=== PATIENT | male | born 1955 | race Hispanic/Latino ===

== ENCOUNTER → 2019-10-19 | Outpatient (CLI) | payer OTHER ==
[~2019-10-19] MED LIST: CALC-1030 PO; CIPR-245 PO; DIPH25TA51 PO; ENAL5TAB PO; FISH OIL OMEGA1 EACH PO; GLIM4TAB36 PO; LORA10TA57 PO; LOVA40TA2 PO; MELO-106 PO; METF-444 PO; OMEP-272 PO; POTA2TAB18 PO; RANI-662 PO; SMZ/TMP DS 800-160 PO; SULF1TAB42 PO
== END | disposition home or self-care (01) ==
LOC: RAH 08:09
PROVIDERS: ATTEND Family Medicine
DX: N28.1 Cyst of kidney, acquired (principal); K73.9 Chronic hepatitis, unspecified; K76.89 Other specified diseases of liver; R16.1 Splenomegaly, not elsewhere classified
CPT/HCPCS: 76700

== ENCOUNTER 2020-05-08 09:44 | Emergency (ER) | payer OTHER ==
[~2020-05-08 09:44] MED LIST changes: -CIPR-245 PO; +CIPR500T10 PO; -ENAL5TAB PO; +ENAL5TAB17 PO
[2020-05-08] MEDS ORDERED: DEXAMETHASONE SOD PHOSPHATE 10MG/ML 1ML VIAL ONE (10:15)
[2020-05-08 10:23] LABS: BASOPHILS % (AUTO) 0.3 % (0.0-5.0); EOSINOPHILS % (AUTO) 0.6 % (0.0-8.0); HEMATOCRIT 31.5 % (42-54); LYMPHOCYTES % (AUTO) 19.4 % (21.0-51.0); MEAN CORPUSCULAR HGB CONC 33.3 g/dL (32.0-36.0); MONOCYTES % (AUTO) 9.4 % (3.0-13.0); PLATELET COUNT (AUTO) 96 K/uL (130-400); RED BLOOD CELL COUNT(AUTO) 3.62 MIL/uL (4.50-6.20); RED CELL DISTRIBUTION WIDTH 14.1 % (11.0-15.5); WHITE BLOOD COUNT (AUTO) 3.4 K/uL (4.8-10.8)
[2020-05-08 10:27] LABS: CREATININE 0.8 mg/dL (0.5-1.5); POTASSIUM 3.9 mmol/L (3.5-5.1)
[2020-05-08 10:32] LABS: BILIRUBIN,TOTAL 2.4 mg/dL (0.2-1.0); TOTAL PROTEIN, SERUM 7.2 g/dL (6.0-8.3)
[2020-05-08 10:34] LABS: ABG BASE EXCESS 0.4 mmol/L (-2.0-3.0); ABG HCO3 22.7 mmol/L (21.0-28.0); ABG OXYGEN SATURATION 92.6 % (95.0-99.0); ABG PCO2 31 mmHg (35-48)
[2020-05-08] MEDS ORDERED: CEFTRIAXONE 1G VIAL ONE (11:55)
== END 2020-05-08 15:01 | disposition home or self-care (01) ==
LOC: EDH 09:44
DX: U07.1 COVID-19 (principal); J12.82 Pneumonia due to coronavirus disease 2019; E11.9 Type 2 diabetes mellitus without complications; I10 Essential (primary) hypertension; E78.5 Hyperlipidemia, unspecified
CPT/HCPCS: 36415; 36600; 71045; 80053; 82803; 85025; 87040; 87804 ×2; 93005; 96374; 96375; 99285; J0696; J1100

== ENCOUNTER 2021-07-28 22:06 | Inpatient (IN) | payer OTHER ==
[~2021-07-28] VITALS: Ht 170.2 cm; Wt 86.5 kg
[2021-07-28] MEDS ORDERED: ONDANSETRON 4MG INJ IVP ONE (22:30)
[2021-07-28] MEDS ORDERED: OCTREOTIDE ACETATE 100 MCG/ML AMP IV SCH (22:30)
[2021-07-28] MEDS ORDERED: OCTREOTIDE ACETATE 1,250 MCG in 0.9% NACL 250ML 250 ML IV SCH (22:30)
[2021-07-28] MEDS ORDERED: 0.9%NACL 1000ML 1,000 ML IV ONE (22:30)
[2021-07-28] MEDS ORDERED: OCTREOTIDE ACETATE 200 MCG/ML 5 ML VIAL ONE (22:36)
[2021-07-28 22:39] LABS: BASOPHILS % (AUTO) 0.3 % (0.0-5.0); EOSINOPHILS % (AUTO) 0.7 % (0.0-8.0); HEMATOCRIT 25.6 % (42-54); LYMPHOCYTES % (AUTO) 10.7 % (21.0-51.0); MEAN CORPUSCULAR HEMOGLOBIN 29.8 pg (27.0-33.0); MEAN CORPUSCULAR HGB CONC 31.6 g/dL (32.0-36.0); MEAN CORPUSCULAR VOLUME 94.1 fL (79-99); MONOCYTES % (AUTO) 6.8 % (3.0-13.0); NEUTROPHILS % (AUTO) 80.4 % (40.0-77.0); PLATELET COUNT (AUTO) 104 K/uL (130-400); RED BLOOD CELL COUNT(AUTO) 2.72 MIL/uL (4.50-6.20); RED CELL DISTRIBUTION WIDTH 15.4 % (11.0-15.5)
[2021-07-28] MEDS ORDERED: 0.9% NACL 500ML IV.SOLN 500 ML IV ONE (22:46)
[2021-07-28 22:50] LABS: CREATININE 1.2 mg/dL (0.5-1.5); POTASSIUM 5.2 mmol/L (3.5-5.1)
[2021-07-28 22:52] LABS: INR 1.21 (0.85-1.15)
[2021-07-28 22:54] LABS: ALBUMIN 2.1 g/dL (3.5-5.0); BILIRUBIN,TOTAL 1.5 mg/dL (0.2-1.0); PARTIAL THROMBOPLASTIN TIME 26.2 SEC (26.3-35.5); TOTAL PROTEIN, SERUM 5.8 g/dL (6.0-8.3)
[2021-07-29] VITALS (54 sets, daily range): BP systolic 80–148; BP diastolic 42–110
[2021-07-29] MEDS ORDERED: NOREPINEPHRIN 4MG/NS 250ML 250 ML IV ONE (00:01)
[2021-07-29] MEDS ORDERED: ALBUMIN (HUMAN) 25% 100 ML IV STA (00:42)
[2021-07-29] MEDS ORDERED: LABETALOL 20MG SYG IV PRN (01:00)
[2021-07-29] MEDS ORDERED: ONDANSETRON 4MG INJ IVP PRN (01:00)
[2021-07-29] MEDS: PANTOPRAZOLE 40 MG/VIAL IVP SCH ×3 (04:30→20:01)
[2021-07-29] MEDS ORDERED: ALBUMIN (HUMAN) 25% 50 ML IV ONE (05:16)
[2021-07-29] MEDS: INSULIN HUMULIN R 100 UNIT/ML 3ML SQ SCH ×3 (06:21→18:22)
[2021-07-29] MEDS: NOREPINEPHRIN 4MG/NS 250ML 250 ML IV SCH ×2 (06:22→23:30)
[2021-07-29] MEDS ORDERED: GLIP5TAB11 PO (06:32)
[2021-07-29] MEDS ORDERED: FERS325 PO (06:32)
[2021-07-29] MEDS ORDERED: ATOR10 PO (06:32)
[2021-07-29] MEDS ORDERED: BENA40TA92 PO (06:32)
[2021-07-29] MEDS ORDERED: URSO500T10 PO ×2 (06:32)
[2021-07-29 07:02] LABS: AMYLASE 38 U/L (25-115); LIPASE 122 U/L (114-286)
[2021-07-29 07:07] LABS: AMMONIA 81 umol/L (11-32)
[2021-07-29 13:14] LABS: HEMATOCRIT 25.2 % (42-54)
[2021-07-29] MEDS ORDERED: 0.9%NACL 1000ML 1,000 ML IV ONE (16:56)
[2021-07-29] MEDS: 0.9%NACL 1000ML 1,000 ML IV SCH (18:15)
[2021-07-29 18:36] LABS: HEMATOCRIT 26.3 % (42-54)
[2021-07-30] VITALS (61 sets, daily range): BP systolic 0–152; BP diastolic 0–119
[2021-07-30] MEDS ORDERED: PHENYLEPHRINE HCL 50 MG in 0.9% NACL 250ML 250 ML IV SCH ×2
[2021-07-30 00:01] LABS: HEMATOCRIT 20.1 % (42-54)
[2021-07-30] MEDS ORDERED: PHENYLEPHRINE HCL 10 MG/ML 1ML VIAL IV ONE ×4 (00:10→02:47)
[2021-07-30] MEDS ORDERED: VASOPRESSIN 40 UNITS in 0.9%NACL 50ML 40 ML IV SCH (00:30)
[2021-07-30] MEDS ORDERED: ALBUMIN (HUMAN) 25% 100 ML IV PRN (00:30)
[2021-07-30] MEDS ORDERED: VASOPRESSIN 20 UNITS/ML 1ML VIAL ONE ×2 (00:30→00:36)
[2021-07-30] MEDS ORDERED: PANTOPRAZOLE 40MG INJ 80 MG in 0.9%NACL 100ML 100 ML IVP SCH (00:30)
[2021-07-30] MEDS ORDERED: EPINEPHRINE 1MG SYG 10ML IVP SCH (01:00)
[2021-07-30] MEDS ORDERED: MIDAZOLAM 100MG-0.9% NS 100ML 100ML BAG IV ONE (01:00)
[2021-07-30] MEDS ORDERED: EPINEPHRINE IV SCH (01:00)
[2021-07-30] MEDS ORDERED: NACL 0.9% IV SCH (01:00)
[2021-07-30] MEDS: 0.9%NACL 1000ML 1,000 ML IV SCH ×5 (01:01→03:26)
[2021-07-30] MEDS ORDERED: EPINEPHRINE 1MG SYG 10ML ONE (01:09)
[2021-07-30] MEDS ORDERED: EPINEPHRINE PF 1MG AMP ONE (01:09)
[2021-07-30] MEDS ORDERED: EPINEPHRINE 1 MG/ML 30ML VIAL IJ ONE (01:27)
[2021-07-30 01:34] LABS: ABG HCO3 6.2 mmol/L (21.0-28.0); ABG OXYGEN SATURATION 57.9 % (95.0-99.0); ABG PCO2 64 mmHg (35-48)
[2021-07-30] MEDS ORDERED: SODIUM BICARB 50MEQ 50ML VIAL 150 ML ONE (01:39)
[2021-07-30] MEDS ORDERED: DEXTROSE 5%-WATER 1,000 ML IV ONE (01:40)
[2021-07-30] MEDS ORDERED: MIDAZOLAM 100MG-0.9% NS 100ML 100 ML IV SCH (02:00)
[2021-07-30] MEDS ORDERED: NOREPINEPHRINE 16MG/NS 250ML PREMIX IV SCH (02:00)
[2021-07-30] MEDS ORDERED: NOREPINEPHRINE BITARTRATE 1 MG/1 ML ML IV ONE (02:04)
[2021-07-30] MEDS ORDERED: PHYTONADIONE 10 MG in 0.9%NACL 50ML 50 ML IVPB SCH (02:30)
[2021-07-30] MEDS ORDERED: PHYTONADIONE 10 MG/1 ML AMP ONE (02:39)
[2021-07-30] MEDS ORDERED: PHENYLEPHRINE HCL 50 MG in 0.9% NACL 250ML 250 ML IV PRN (03:30)
[2021-07-30] MEDS ORDERED: SODIUM BICARB 8.4% 50ML SYRING 150 MEQ in DEXTROSE 5%-WATER 1,000 ML IVP SCH (03:30)
[2021-07-30 04:10] LABS: ABG BASE EXCESS -23.4 mmol/L (-2.0-3.0); ABG HCO3 6.4 mmol/L (21.0-28.0); ABG OXYGEN SATURATION 96.6 % (95.0-99.0); ABG PCO2 35 mmHg (35-48)
[2021-07-30] MEDS ORDERED: SODIUM BICARB 8.4% 50ML SYRINGE IVP ONE (04:44)
[2021-07-30] MEDS ORDERED: CACL 1GM SYG IVP ONE (04:44)
[2021-07-30] MEDS ORDERED: ATROPINE 1MG SYG IVP ONE (04:44)
[2021-07-30] MEDS ORDERED: EPINEPHRINE 1MG SYG 10ML IVP ONE (04:44)
== END 2021-07-30 04:45 | DRG 377 ==
LOC: EDH 22:06 → OBSVTOIN 23:33 → EDHIP 23:33 → 2CH 07-29 05:56
PROVIDERS: ADMIT Internal Medicine Critical Care Medicine; ATTEND Internal Medicine Critical Care Medicine
PROC: 30233N1 Transfusion of Nonautologous Red Blood Cells into Peripheral Vein, Percutaneous Approach (ICD-10-PCS; principal; 2021-07-29)
PROC: 30233K1 Transfusion of Nonautologous Frozen Plasma into Peripheral Vein, Percutaneous Approach (ICD-10-PCS; 2021-07-30)
DX: K92.2 Gastrointestinal hemorrhage, unspecified (principal); E43 Unspecified severe protein-calorie malnutrition; K76.6 Portal hypertension; D62 Acute posthemorrhagic anemia; I95.9 Hypotension, unspecified; Z66 Do not resuscitate; E86.9 Volume depletion, unspecified; I85.00 Esophageal varices without bleeding; D64.9 Anemia, unspecified; K74.60 Unspecified cirrhosis of liver; D72.810 Lymphocytopenia; E11.9 Type 2 diabetes mellitus without complications; E78.00 Pure hypercholesterolemia, unspecified; E78.5 Hyperlipidemia, unspecified; E87.5 Hyperkalemia; F19.90 Other psychoactive substance use, unspecified, uncomplicated; I10 Essential (primary) hypertension; I46.9 Cardiac arrest, cause unspecified; K22.6 Gastro-esophageal laceration-hemorrhage syndrome; K31.89 Other diseases of stomach and duodenum; K74.3 Primary biliary cirrhosis; K80.20 Calculus of gallbladder without cholecystitis without obstruction; R57.1 Hypovolemic shock; Z79.84 Long term (current) use of oral hypoglycemic drugs; Z79.899 Other long term (current) drug therapy; K31.82 Dieulafoy lesion (hemorrhagic) of stomach and duodenum; Z68.29 Body mass index [BMI] 29.0-29.9, adult
CPT/HCPCS: 31500; 36415; 36600; 71045; 74176; 80053; 82140; 82150; 82435; 82803; 82947; 82948; 83605; 83690; 84132; 84145; 84295; 85014; 85018; 85025; 85610; 85730; 86850; 86900; 86901; 86923; 86927; 87040; 87077; 87186; 92950; 93005; 94002; 99291; C1751; C1894; C9113; G0378; J0171; J0461; J1815; J2354; J2370; J2405; J3430; J3490; J7030; J7040; J7050; J7070; P9016; P9017; P9046; P9047